=== PATIENT | male | born 1955 | race Caucasian/White ===

== ENCOUNTER 2017-10-30 07:55 | Day surgery (SDC) | payer BC ==
[~2017-10-30 07:55] MED LIST: LIDOCAINE 2% MDV 20 ML VIAL As Ordered; PROPOFOL 200 MG/20 ML VIAL As Ordered
== END 2017-10-30 10:05 | disposition home or self-care (01) ==
LOC: M OPP 07:55
DX: Z12.11 Encounter for screening for malignant neoplasm of colon (principal); D12.3 Benign neoplasm of transverse colon; K64.8 Other hemorrhoids; I10 Essential (primary) hypertension; E78.5 Hyperlipidemia, unspecified; I25.10 Atherosclerotic heart disease of native coronary artery without angina pectoris; M54.9 Dorsalgia, unspecified; Z86.73 Personal history of transient ischemic attack (TIA), and cerebral infarction without residual deficits; Z95.5 Presence of coronary angioplasty implant and graft; Z79.82 Long term (current) use of aspirin; Z79.899 Other long term (current) drug therapy; Z87.891 Personal history of nicotine dependence
CPT/HCPCS: 45385

== ENCOUNTER → 2020-09-07 | Outpatient (REF) | payer BC ==
[~2020-09-07] MED LIST changes: +ASPI32ECTA PO; +CLOP75TA2 PO; +CRES20TA PO; -LIDOCAINE 2% MDV 20 ML VIAL As Ordered; +LISI5TAB PO; +LOPR50TA PO; +METO1INJ PO; -PROPOFOL 200 MG/20 ML VIAL As Ordered; +RAMI1CAP21 PO
== END ==
LOC: M LAB REF 17:35
PROVIDERS: ATTEND Physician Assistant
DX: D49.2 Neoplasm of unspecified behavior of bone, soft tissue, and skin (principal)

== ENCOUNTER → 2021-09-26 | Outpatient (CLI) | payer MEDICARE ==
[2021-09-26 11:20] LABS: BASO # 0.1 10^3/uL (0.0-0.2); BASO % 1.3 % (0.0-1.0); EOS # 0.1 10^3/uL (0.0-0.5); EOS % 2.4 % (0.0-3.0); HEMATOCRIT 48.8 % (42.0-52.0); HEMOGLOBIN 16.5 g/dl (13.5-17.5); LYMPH % 21.8 % (24.0-44.0); MEAN CORPUSCULAR HEMOGLOBIN 32.1 pg (27.0-33.0); MEAN CORPUSCULAR HGB CONC 33.8 g/dl (32.0-36.5); MEAN CORPUSCULAR VOLUME 94.9 fl (80.0-96.0); MONO # 0.6 10^3/uL (0.0-0.8); MONO % 12.3 % (2.0-8.0); NEUTROPHILS # 2.8 10^3/uL (1.5-8.5); NEUTROPHILS % 61.8 % (36.0-66.0); PLATELET COUNT, AUTOMATED 213 10^3/uL (150-450); RED BLOOD COUNT 5.14 10^6/uL (4.30-6.10); WHITE BLOOD COUNT 4.5 10^3/uL (4.0-10.0)
[2021-09-26 12:42] LABS: ALBUMIN 3.9 GM/DL (3.2-5.2); ALT/SGPT 31 U/L (12-78); BILIRUBIN,TOTAL 1.4 MG/DL (0.2-1.0); BLOOD UREA NITROGEN 15 MG/DL (7-18); CALCIUM LEVEL 8.8 MG/DL (8.8-10.2); CARBON DIOXIDE LEVEL 30 MEQ/L (21-32); CHLORIDE LEVEL 108 MEQ/L (98-107); CHOLESTEROL LEVEL 120 MG/DL (<200); CHOLESTEROL RISK RATIO 2.553 (<5); GLOMERULAR FILTRATION RATE > 60.0 (>49); GLUCOSE, FASTING 88 MG/DL (70-100); HDL CHOLESTEROL 47 MG/DL (>40); LDL CHOLESTEROL 61 MG/DL (<100); NON-HDL-C 73 MG/DL; POTASSIUM SERUM 4.6 MEQ/L (3.5-5.1); SODIUM LEVEL 141 MEQ/L (136-145); TRIGLYCERIDES LEVEL 58 MG/DL (<150)
[2021-09-27 23:07] LABS: PSA TOTAL 0.9 ng/mL (0.0-4.0)
== END ==
LOC: M PLALAB 08:16
PROVIDERS: ATTEND Family Medicine
DX: Z13.0 Encounter for screening for diseases of the blood and blood-forming organs and certain disorders involving the immune mechanism (principal); Z13.29 Encounter for screening for other suspected endocrine disorder; E78.5 Hyperlipidemia, unspecified; N40.1 Benign prostatic hyperplasia with lower urinary tract symptoms

== ENCOUNTER 2021-11-27 16:48 | Inpatient (IN) | payer MEDICARE ==
[~2021-11-27] VITALS: Ht 177.8 cm; Wt 91.9 kg
[2021-11-27] MEDS ORDERED: ASPI81TA26 PO (17:00)
[2021-11-27] MEDS ORDERED: ATOR40TA75 (17:00)
[2021-11-27] MEDS ORDERED: NS 1,000 ML IV ONE (17:40)
[2021-11-27] MEDS ORDERED: ONDANSETRON 4MG/2ML VIAL IV ONE (17:40)
[2021-11-27 18:59] LABS: BASO % 0.1 % (0.0-1.0); HEMATOCRIT 47.5 % (42.0-52.0); HEMOGLOBIN 17.1 g/dl (13.5-17.5); LYMPH # 0.7 10^3/uL (1.5-5.0); LYMPH % 5.8 % (24.0-44.0); MEAN CORPUSCULAR HEMOGLOBIN 32.9 pg (27.0-33.0); MEAN CORPUSCULAR VOLUME 91.3 fl (80.0-96.0); MONO # 0.5 10^3/uL (0.0-0.8); MONO % 4.4 % (2.0-8.0); NEUTROPHILS # 10.4 10^3/uL (1.5-8.5); NEUTROPHILS % 89.2 % (36.0-66.0); PLATELET COUNT, AUTOMATED 200 10^3/uL (150-450); WHITE BLOOD COUNT 11.7 10^3/uL (4.0-10.0)
[2021-11-27 19:16] LABS: BLOOD UREA NITROGEN 17 MG/DL (7-18); CALCIUM LEVEL 8.9 MG/DL (8.8-10.2); CARBON DIOXIDE LEVEL 31 MEQ/L (21-32); CHLORIDE LEVEL 106 MEQ/L (98-107); GLOMERULAR FILTRATION RATE > 60.0 (>49); GLUCOSE, FASTING 118 MG/DL (70-100); POTASSIUM SERUM 4.7 MEQ/L (3.5-5.1); SODIUM LEVEL 141 MEQ/L (136-145)
[2021-11-27 19:36] LABS: RSV AMPLIFICATION NEGATIVE (NEGATIVE)
[2021-11-27] MEDS ORDERED: ONDANSETRON 4MG/2ML VIAL IV PRN (21:00)
[2021-11-27] MEDS ORDERED: ATOR40TA75 PO (21:32)
[2021-11-27] MEDS ORDERED: ASPI-161 PO (21:32)
[2021-11-27] MEDS ORDERED: PLAV1TAB2 PO (21:32)
[2021-11-27] MEDS ORDERED: ZINC1TAB2 PO (21:32)
[2021-11-27] MEDS ORDERED: FLOM0.4C39 PO (21:32)
[2021-11-27] MEDS ORDERED: HOME MED LIST COMPLETE! XX SCH (21:35)
[2021-11-27 21:53] LABS: C REACTIVE PROTEIN QUANTITATIV < 0.30 MG/DL (0.00-0.30)
[2021-11-27 21:55] LABS: PARTIAL THROMBOPLASTIN TIME 28.6 SECONDS (25.9-37.0); PROTHROMBIN TIME 13.6 SECONDS (12.7-14.5)
[2021-11-27 21:59] LABS: ERYTHROCYTE SEDIMENTATION RATE 1 mm/hr (0-20)
[2021-11-28] VITALS (8 sets, daily range): BP systolic 111–156; BP diastolic 62–83
[2021-11-28] MEDS: ATORVASTATIN 20 MG TAB PO SCH ×2 (04:52→20:12)
[2021-11-28] MEDS: ACETAMINOPHEN TAB 650MG DOSE (2X325MG) PO PRN ×2 (07:44→15:25)
[2021-11-28] MEDS: ASPIRIN 81MG ENTERIC TABLET PO SCH (08:00)
[2021-11-28] MEDS: TAMSULOSIN 0.4 MG CAP PO SCH (08:00)
[2021-11-28] MEDS: CLOPIDOGREL 75 MG TAB PO SCH (08:00)
[2021-11-28] MEDS: ramipriL 1.25 MG CAP PO SCH (08:22)
[2021-11-28 08:46] LABS: HEMATOCRIT 46.2 % (42.0-52.0); HEMOGLOBIN 16.2 g/dl (13.5-17.5); MEAN CORPUSCULAR HEMOGLOBIN 32.6 pg (27.0-33.0); MEAN CORPUSCULAR HGB CONC 35.1 g/dl (32.0-36.5); PLATELET COUNT, AUTOMATED 194 10^3/uL (150-450); RED BLOOD COUNT 4.97 10^6/uL (4.30-6.10); WHITE BLOOD COUNT 14.4 10^3/uL (4.0-10.0)
[2021-11-28 09:05] LABS: CHOLESTEROL RISK RATIO 2.625 (<5)
[2021-11-28 09:18] LABS: BLOOD UREA NITROGEN 19 MG/DL (7-18); CALCIUM LEVEL 9.1 MG/DL (8.8-10.2); CARBON DIOXIDE LEVEL 29 MEQ/L (21-32); CHLORIDE LEVEL 108 MEQ/L (98-107); CREATININE FOR GFR 1.03 MG/DL (0.70-1.30); GLOMERULAR FILTRATION RATE > 60.0 (>49); GLUCOSE, FASTING 117 MG/DL (70-100); MAGNESIUM LEVEL 2.3 MG/DL (1.8-2.4); POTASSIUM SERUM 3.9 MEQ/L (3.5-5.1); SODIUM LEVEL 142 MEQ/L (136-145)
[2021-11-28 10:29] LABS: HEMOGLOBIN A1c 5.1 %
[2021-11-28] MEDS: ONDANSETRON 4MG ORAL DISINTEGRATING TAB PO SCH (18:54)
[2021-11-28] MEDS: SODIUM CHLORIDE 3% 500 ML IV SCH (20:12)
[2021-11-28] MEDS ORDERED: SODIUM CHLORIDE 3% 500 ML IV SCH (23:15)
[2021-11-29] VITALS (67 sets, daily range): BP systolic 99–162; BP diastolic 54–87
[2021-11-29] MEDS: ACETAMINOPHEN TAB 650MG DOSE (2X325MG) PO PRN ×2 (00:33→04:16)
[2021-11-29 05:22] LABS: HEMATOCRIT 44.3 % (42.0-52.0); HEMOGLOBIN 15.5 g/dl (13.5-17.5); MEAN CORPUSCULAR HEMOGLOBIN 33.1 pg (27.0-33.0); MEAN CORPUSCULAR VOLUME 94.7 fl (80.0-96.0); PLATELET COUNT, AUTOMATED 180 10^3/uL (150-450); RED BLOOD COUNT 4.68 10^6/uL (4.30-6.10); WHITE BLOOD COUNT 9.4 10^3/uL (4.0-10.0)
[2021-11-29 05:38] LABS: BLOOD UREA NITROGEN 19 MG/DL (7-18); CALCIUM LEVEL 8.5 MG/DL (8.8-10.2); CARBON DIOXIDE LEVEL 31 MEQ/L (21-32); CHLORIDE LEVEL 111 MEQ/L (98-107); CREATININE FOR GFR 0.98 MG/DL (0.70-1.30); GLOMERULAR FILTRATION RATE > 60.0 (>49); GLUCOSE, FASTING 106 MG/DL (70-100); SODIUM LEVEL 144 MEQ/L (136-145)
[2021-11-29] MEDS ORDERED: PREVNAR 13 VACCINE SYRINGE IM SCH (06:35)
[2021-11-29] MEDS: ASPIRIN 81MG ENTERIC TABLET PO SCH (09:20)
[2021-11-29] MEDS: CLOPIDOGREL 75 MG TAB PO SCH (09:20)
[2021-11-29] MEDS: TAMSULOSIN 0.4 MG CAP PO SCH (09:21)
[2021-11-29] MEDS: ONDANSETRON 4MG ORAL DISINTEGRATING TAB PO SCH ×2 (09:21→22:03)
[2021-11-29 09:35] LABS: DRVV SCREEN 38.1 SEC
[2021-11-29] MEDS: ramipriL 1.25 MG CAP PO SCH ×2 (10:11→10:59)
[2021-11-29] MEDS: ZINC SULFATE 220 MG CAP PO SCH (10:59)
[2021-11-29] MEDS: SODIUM CHLORIDE 3% 500 ML IV SCH (13:00)
[2021-11-29] MEDS ORDERED: MIDAZOLAM INJ 2MG/2ML VIAL (J2250 PER 1MG) IV ONE ×2 (18:20)
[2021-11-29] MEDS ORDERED: LIDOCAINE VISCOUS 2% SOLN 15ML UDC PO ONE (18:20)
[2021-11-29] MEDS ORDERED: fentaNYL 100 MCG/2 ML INJECTION IV ONE ×2 (18:20)
[2021-11-29] MEDS ORDERED: CETACAINE SPRAY 5GM TOP ONE (18:20)
[2021-11-29] MEDS: ATORVASTATIN 20 MG TAB PO SCH (22:03)
[2021-11-30] VITALS (22 sets, daily range): BP systolic 103–154; BP diastolic 64–87
[2021-11-30] MEDS: ACETAMINOPHEN TAB 650MG DOSE (2X325MG) PO PRN ×3 (00:11→21:52)
[2021-11-30 05:06] LABS: HEMATOCRIT 43.1 % (42.0-52.0); HEMOGLOBIN 15.3 g/dl (13.5-17.5); MEAN CORPUSCULAR HEMOGLOBIN 33.6 pg (27.0-33.0); MEAN CORPUSCULAR HGB CONC 35.5 g/dl (32.0-36.5); MEAN CORPUSCULAR VOLUME 94.5 fl (80.0-96.0); PLATELET COUNT, AUTOMATED 165 10^3/uL (150-450); RED BLOOD COUNT 4.56 10^6/uL (4.30-6.10); WHITE BLOOD COUNT 6.6 10^3/uL (4.0-10.0)
[2021-11-30 05:25] LABS: BLOOD UREA NITROGEN 18 MG/DL (7-18); CALCIUM LEVEL 8.1 MG/DL (8.8-10.2); CARBON DIOXIDE LEVEL 28 MEQ/L (21-32); CHLORIDE LEVEL 116 MEQ/L (98-107); CREATININE FOR GFR 0.82 MG/DL (0.70-1.30); GLOMERULAR FILTRATION RATE > 60.0 (>49); GLUCOSE, FASTING 88 MG/DL (70-100); POTASSIUM SERUM 3.6 MEQ/L (3.5-5.1); SODIUM LEVEL 147 MEQ/L (136-145)
[2021-11-30] MEDS: SODIUM CHLORIDE 3% 500 ML IV SCH ×2 (06:01→21:51)
[2021-11-30] MEDS: ZINC SULFATE 220 MG CAP PO SCH (08:34)
[2021-11-30] MEDS: CLOPIDOGREL 75 MG TAB PO SCH (08:34)
[2021-11-30] MEDS: ASPIRIN 81MG ENTERIC TABLET PO SCH (08:34)
[2021-11-30] MEDS: ramipriL 1.25 MG CAP PO SCH (08:34)
[2021-11-30] MEDS: ONDANSETRON 4MG ORAL DISINTEGRATING TAB PO SCH ×2 (08:34→21:51)
[2021-11-30] MEDS: TAMSULOSIN 0.4 MG CAP PO SCH (08:34)
[2021-11-30 21:31] LABS: BLOOD UREA NITROGEN 18 MG/DL (7-18); CALCIUM LEVEL 8.1 MG/DL (8.8-10.2); CARBON DIOXIDE LEVEL 29 MEQ/L (21-32); CHLORIDE LEVEL 115 MEQ/L (98-107); CREATININE FOR GFR 0.78 MG/DL (0.70-1.30); GLOMERULAR FILTRATION RATE > 60.0 (>49); GLUCOSE, FASTING 101 MG/DL (70-100); POTASSIUM SERUM 3.5 MEQ/L (3.5-5.1); SODIUM LEVEL 147 MEQ/L (136-145)
[2021-11-30] MEDS: ATORVASTATIN 20 MG TAB PO SCH (21:51)
[2021-12-01] VITALS (22 sets, daily range): BP systolic 114–181; BP diastolic 58–89
[2021-12-01 05:03] LABS: HEMATOCRIT 41.3 % (42.0-52.0); HEMOGLOBIN 14.6 g/dl (13.5-17.5); MEAN CORPUSCULAR HEMOGLOBIN 33.1 pg (27.0-33.0); MEAN CORPUSCULAR HGB CONC 35.4 g/dl (32.0-36.5); MEAN CORPUSCULAR VOLUME 93.7 fl (80.0-96.0); PLATELET COUNT, AUTOMATED 159 10^3/uL (150-450); RED BLOOD COUNT 4.41 10^6/uL (4.30-6.10); WHITE BLOOD COUNT 6.3 10^3/uL (4.0-10.0)
[2021-12-01 05:25] LABS: BLOOD UREA NITROGEN 17 MG/DL (7-18); CALCIUM LEVEL 7.9 MG/DL (8.8-10.2); CARBON DIOXIDE LEVEL 26 MEQ/L (21-32); CHLORIDE LEVEL 115 MEQ/L (98-107); CREATININE FOR GFR 0.81 MG/DL (0.70-1.30); GLOMERULAR FILTRATION RATE > 60.0 (>49); GLUCOSE, FASTING 94 MG/DL (70-100); POTASSIUM SERUM 3.7 MEQ/L (3.5-5.1); SODIUM LEVEL 146 MEQ/L (136-145)
[2021-12-01] MEDS: TAMSULOSIN 0.4 MG CAP PO SCH (07:30)
[2021-12-01] MEDS: ZINC SULFATE 220 MG CAP PO SCH (07:30)
[2021-12-01] MEDS: CLOPIDOGREL 75 MG TAB PO SCH (07:30)
[2021-12-01] MEDS: ramipriL 1.25 MG CAP PO SCH (07:31)
[2021-12-01] MEDS: ONDANSETRON 4MG ORAL DISINTEGRATING TAB PO SCH ×2 (07:31→20:41)
[2021-12-01] MEDS: ASPIRIN 81MG ENTERIC TABLET PO SCH (07:31)
[2021-12-01] MEDS: SODIUM CHLORIDE 3% 500 ML IV SCH (10:13)
[2021-12-01] MEDS: ATORVASTATIN 20 MG TAB PO SCH (20:41)
[2021-12-02] VITALS (10 sets, daily range): BP systolic 114–165; BP diastolic 53–93
[2021-12-02] MEDS: ACETAMINOPHEN TAB 650MG DOSE (2X325MG) PO PRN (00:41)
[2021-12-02 05:07] LABS: HEMATOCRIT 39.8 % (42.0-52.0); HEMOGLOBIN 14.4 g/dl (13.5-17.5); MEAN CORPUSCULAR HEMOGLOBIN 33.6 pg (27.0-33.0); MEAN CORPUSCULAR HGB CONC 36.2 g/dl (32.0-36.5); MEAN CORPUSCULAR VOLUME 92.8 fl (80.0-96.0); PLATELET COUNT, AUTOMATED 161 10^3/uL (150-450); RED BLOOD COUNT 4.29 10^6/uL (4.30-6.10); WHITE BLOOD COUNT 6.7 10^3/uL (4.0-10.0)
[2021-12-02 05:29] LABS: BLOOD UREA NITROGEN 12 MG/DL (7-18); CARBON DIOXIDE LEVEL 27 MEQ/L (21-32); CHLORIDE LEVEL 113 MEQ/L (98-107); CREATININE FOR GFR 0.86 MG/DL (0.70-1.30); GLOMERULAR FILTRATION RATE > 60.0 (>49); GLUCOSE, FASTING 93 MG/DL (70-100); POTASSIUM SERUM 3.6 MEQ/L (3.5-5.1); SODIUM LEVEL 143 MEQ/L (136-145)
[2021-12-02] MEDS: ZINC SULFATE 220 MG CAP PO SCH (07:59)
[2021-12-02] MEDS: ASPIRIN 81MG ENTERIC TABLET PO SCH (07:59)
[2021-12-02] MEDS: ramipriL 1.25 MG CAP PO SCH (07:59)
[2021-12-02] MEDS: ONDANSETRON 4MG ORAL DISINTEGRATING TAB PO SCH ×2 (08:00→20:15)
[2021-12-02] MEDS: APIXABAN 2.5 MG TAB (ELIQUIS) PO SCH ×2 (08:00→20:15)
[2021-12-02] MEDS: TAMSULOSIN 0.4 MG CAP PO SCH (08:00)
[2021-12-02] MEDS: ATORVASTATIN 20 MG TAB PO SCH (20:15)
[2021-12-03 03:53] VITALS: BP 131/72
[2021-12-03 05:33] LABS: HEMATOCRIT 40.6 % (42.0-52.0); HEMOGLOBIN 14.8 g/dl (13.5-17.5); MEAN CORPUSCULAR HEMOGLOBIN 33.4 pg (27.0-33.0); MEAN CORPUSCULAR HGB CONC 36.5 g/dl (32.0-36.5); MEAN CORPUSCULAR VOLUME 91.6 fl (80.0-96.0); PLATELET COUNT, AUTOMATED 167 10^3/uL (150-450); RED BLOOD COUNT 4.43 10^6/uL (4.30-6.10); WHITE BLOOD COUNT 6.8 10^3/uL (4.0-10.0)
[2021-12-03 06:01] LABS: BLOOD UREA NITROGEN 11 MG/DL (7-18); CARBON DIOXIDE LEVEL 30 MEQ/L (21-32); CHLORIDE LEVEL 110 MEQ/L (98-107); CREATININE FOR GFR 0.93 MG/DL (0.70-1.30); GLOMERULAR FILTRATION RATE > 60.0 (>49); GLUCOSE, FASTING 90 MG/DL (70-100); POTASSIUM SERUM 3.7 MEQ/L (3.5-5.1); SODIUM LEVEL 142 MEQ/L (136-145)
[2021-12-03 08:00] VITALS: BP 137/73
[2021-12-03] MEDS: TAMSULOSIN 0.4 MG CAP PO SCH (08:21)
[2021-12-03] MEDS: ZINC SULFATE 220 MG CAP PO SCH (08:21)
[2021-12-03] MEDS: APIXABAN 2.5 MG TAB (ELIQUIS) PO SCH (08:21)
[2021-12-03] MEDS: ONDANSETRON 4MG ORAL DISINTEGRATING TAB PO SCH ×2 (08:22→20:29)
[2021-12-03] MEDS: ASPIRIN 81MG ENTERIC TABLET PO SCH (08:22)
[2021-12-03] MEDS: ramipriL 1.25 MG CAP PO SCH (08:22)
[2021-12-03 12:00] VITALS: BP 128/76
[2021-12-03 16:00] VITALS: BP 131/69
[2021-12-03] MEDS: MIRALAX *UNIT DOSE* 17GM PACKET PO SCH (16:52)
[2021-12-03 20:17] VITALS: BP 117/86
[2021-12-03] MEDS: ATORVASTATIN 20 MG TAB PO SCH (20:29)
[2021-12-04 04:20] VITALS: BP 124/72
[2021-12-04 05:05] LABS: HEMATOCRIT 42.7 % (42.0-52.0); HEMOGLOBIN 15.6 g/dl (13.5-17.5); MEAN CORPUSCULAR HEMOGLOBIN 33.5 pg (27.0-33.0); MEAN CORPUSCULAR HGB CONC 36.5 g/dl (32.0-36.5); MEAN CORPUSCULAR VOLUME 91.8 fl (80.0-96.0); PLATELET COUNT, AUTOMATED 170 10^3/uL (150-450); RED BLOOD COUNT 4.65 10^6/uL (4.30-6.10); WHITE BLOOD COUNT 7.6 10^3/uL (4.0-10.0)
[2021-12-04 05:31] LABS: BLOOD UREA NITROGEN 12 MG/DL (7-18); CALCIUM LEVEL 8.3 MG/DL (8.8-10.2); CARBON DIOXIDE LEVEL 29 MEQ/L (21-32); CHLORIDE LEVEL 110 MEQ/L (98-107); CREATININE FOR GFR 0.91 MG/DL (0.70-1.30); GLOMERULAR FILTRATION RATE > 60.0 (>49); GLUCOSE, FASTING 86 MG/DL (70-100); POTASSIUM SERUM 4.1 MEQ/L (3.5-5.1); SODIUM LEVEL 142 MEQ/L (136-145)
[2021-12-04 08:00] VITALS: BP 126/79
[2021-12-04 08:29] VITALS: BP 126/79
[2021-12-04] MEDS: ASPIRIN 81MG ENTERIC TABLET PO SCH (08:29)
[2021-12-04] MEDS: ramipriL 1.25 MG CAP PO SCH (08:29)
[2021-12-04] MEDS: ZINC SULFATE 220 MG CAP PO SCH (08:29)
[2021-12-04] MEDS: TAMSULOSIN 0.4 MG CAP PO SCH (08:29)
[2021-12-04] MEDS: MIRALAX *UNIT DOSE* 17GM PACKET PO SCH (08:29)
[2021-12-04] MEDS: ONDANSETRON 4MG ORAL DISINTEGRATING TAB PO SCH (08:31)
[2021-12-04] MEDS ORDERED: CLOPIDOGREL 75 MG TAB PO SCH (09:00)
== END 2021-12-04 11:00 | disposition home or self-care (01) | DRG 64 ==
LOC: M ED 16:48 → M ED INP 16:49 → OBSVTOIN 11-28 16:05 → ENRESERV 11-28 16:23 → M ICU 11-28 16:53
PROVIDERS: ADMIT Family Medicine; ATTEND Internal Medicine
DX: I63.9 Cerebral infarction, unspecified (principal); I61.4 Nontraumatic intracerebral hemorrhage in cerebellum; G93.6 Cerebral edema; G93.5 Compression of brain; I10 Essential (primary) hypertension; I25.10 Atherosclerotic heart disease of native coronary artery without angina pectoris; N40.0 Benign prostatic hyperplasia without lower urinary tract symptoms; E78.5 Hyperlipidemia, unspecified; I51.3 Intracardiac thrombosis, not elsewhere classified; Z95.2 Presence of prosthetic heart valve; Z79.82 Long term (current) use of aspirin; Z79.899 Other long term (current) drug therapy; Z86.73 Personal history of transient ischemic attack (TIA), and cerebral infarction without residual deficits